=== PATIENT | male | born 1960 | race Two or more races ===

== ENCOUNTER 2018-07-20 15:18 | Outpatient (CLI) | payer OTHER | END 2018-07-20 15:36 | disposition home or self-care (01) | LOC: RAD 501 15:18 | DX: M25.561 Pain in right knee (principal) ==

== ENCOUNTER 2024-06-20 10:26 | Outpatient (CLI) | payer OTHER | END 2024-06-20 10:37 | disposition home or self-care (01) | LOC: RAD 10:26 | PROVIDERS: ATTEND Orthopaedic Surgery | DX: M25.562 Pain in left knee (principal); M25.552 Pain in left hip ==

== ENCOUNTER 2024-09-24 07:33 | Outpatient (CLI) | payer OTHER ==
[2024-09-24 08:43] LABS: BASO % 0.9 % (0.1-1.2); EOS # 0.21 (0.04-0.54); EOS % 2.3 % (0.7-7.0); HEMATOCRIT 46.7 % (40.1-51.0); HEMOGLOBIN 15.6 g/dL (13.7-17.5); LYMPH # 2.12 (1.18-3.74); LYMPH % 22.8 % (19.3-53.1); MONO # 0.69 (0.24-0.82); MONO % 7.4 % (4.7-12.5); NEUT # 6.17 (1.56-6.13); NEUT % 66.3 % (34.0-71.1); PLATELET COUNT 228 K/uL (163-369)
[2024-09-24 09:06] LABS: PH,URINE 5.5 (5.0-8.0); URINE APPEARANCE Clear; URINE BILIRRUBIN Negative (NEGATIVE); URINE BLOOD Negative; URINE COLOR Yellow; URINE KETONE Trace (NEGATIVE); URINE LEUKOCYTE Negative; URINE NITRATE Negative; URINE PROTEIN Trace (NEGATIVE)
[2024-09-24 09:07] LABS: URINE BACTERIA 4.8 uL (0.0-1933); URINE EPITHELIAL CELLS 4.1 uL (0.0-38.8); URINE WBC 4.2 uL (0.0-23.2)
[2024-09-24 09:08] LABS: PARTIAL THROMBOPLASTIN TIME 25.7 SECONDS (22.0-34.0); PROTHROMBIN TIME 10.9 SECONDS (9.0-11.5)
[2024-09-24 09:15] LABS: URINE GLUCOSE >=1000 MG/DL (NEGATIVE); URINE RBC 0.2 uL (0.0-20.8)
[2024-09-24 09:23] LABS: BILIRUBIN TOTAL 0.68 mg/dL (0.3-1.2); CALCIUM 9.7 mg/dL (8.5-10.1); CREATININE SERUM 1.12 mg/dL (0.70-1.30); GFR 65.59; GLOBULINA 3.6 G/DL (2.4-3.5); POTASSIUM 3.84 mEq/L (3.5-5.1); TOTAL PROTEIN 7.6 gm/dL (6.4-8.2)
[2024-09-24 09:24] LABS: COL EPI 100 SECONDS (82-175)
== END 2024-09-24 07:34 | disposition home or self-care (01) ==
LOC: RAD 07:33
PROVIDERS: ATTEND Orthopaedic Surgery
DX: D64.9 Anemia, unspecified (principal); E88.9 Metabolic disorder, unspecified; D68.8 Other specified coagulation defects; N39.0 Urinary tract infection, site not specified; Z22.322 Carrier or suspected carrier of Methicillin resistant Staphylococcus aureus; E11.8 Type 2 diabetes mellitus with unspecified complications; Z76.89 Persons encountering health services in other specified circumstances